=== PATIENT | male | born 1985 | race Two or more races ===

== ENCOUNTER 2021-02-19 13:39 | Emergency (ER) | payer OTHER ==
[~2021-02-19] VITALS: Ht 167.6 cm; Wt 61.2 kg
[2021-02-19] MEDS ORDERED: ZITHROMAX200 MG PO (18:33)
== END 2021-02-19 19:26 | disposition home or self-care (01) ==
LOC: ER 13:39
DX: R05 Cough (principal); R51.9 Headache, unspecified

== ENCOUNTER 2021-02-24 09:00 | Outpatient (CLI) | payer OTHER ==
[~2021-02-24 09:00] MED LIST: ZITHROMAX200 MG PO
== END 2021-02-24 11:00 | disposition home or self-care (01) ==
LOC: ASH CLINIC 09:00
PROVIDERS: ATTEND General Practice
DX: Z23 Encounter for immunization (principal); U07.1 COVID-19